=== PATIENT | female | born 2005 | race Caucasian/White ===

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

== ENCOUNTER 2024-02-18 13:38 | Outpatient (REF) | payer MEDICAID, SELFPAY | END 2024-02-18 13:39 | disposition home or self-care (01) | LOC: NCHCN 13:38 | PROVIDERS: PCP Physician Assistant; Visit Provider Physician Assistant | DX: N39.0 Urinary tract infection, site not specified (principal); B96.29 Other Escherichia coli [E. coli] as the cause of diseases classified elsewhere | CPT/HCPCS: 87077; 87086; 87186 ==

== ENCOUNTER 2024-03-29 14:29 | Outpatient (REF) | payer MEDICAID, SELFPAY ==
[2024-03-30 12:15] LABS: Chlamydia Result Negative (Negative); GC Result Negative (Negative)
== END 2024-03-29 14:30 | disposition home or self-care (01) ==
LOC: LBN 14:29
PROVIDERS: Visit Provider Obstetrics & Gynecology
DX: Z11.3 Encounter for screening for infections with a predominantly sexual mode of transmission (principal); Z32.00 Encounter for pregnancy test, result unknown; N39.0 Urinary tract infection, site not specified; Z87.42 Personal history of other diseases of the female genital tract; Z86.59 Personal history of other mental and behavioral disorders
CPT/HCPCS: 87491; 87591

== ENCOUNTER 2024-05-05 16:29 | Outpatient (CLI) | payer MEDICAID, SELFPAY ==
--- NOTE | 2024-05-05 16:15 | RT.EKG_ITS ---
APPROVED REPORT Exam: Resting ECG Reason for Exam: Syncope and collapse Patient Location: O HR:67 bpm ECG Measurements Heart Rate 67 AXIS UT 178 P 65 QRSd 99 QRS 80 QT 384 T 69 QTc 406 Conclusion Sinus rhythm...normal P axis, V-rate 50- 99 Normal Electrocardiogram
== END 2024-05-05 16:30 | disposition home or self-care (01) ==
LOC: DI.KIM 16:30
PROVIDERS: Visit Provider Nurse Practitioner Family
DX: R55 Syncope and collapse (principal)
CPT/HCPCS: 93010

== ENCOUNTER 2024-05-17 02:26 | Outpatient (CLI) | payer MEDICAID, SELFPAY ==
[2024-05-17 16:55] LABS: HGB 13.5 g/dL (11.2-15.7); MCH 28.5 pg (27.0-33.0); MCHC 32.9 % (32.0-36.0); MCV 87 fL (80-95); MPV 9.4 fL (8.0-11.0); Platelet Count 209 10^3/uL (130-400); RBC 4.73 10^6/uL (3.93-5.22); RDW-SD 38.9 fL; WBC 7.28 10^3/uL (4.4-10.8)
[2024-05-17 17:19] LABS: ALT 19 U/L (14-59); AST 16 U/L (15-37); Albumin 4.1 g/dL (3.4-5.0); Alkaline Phosphatase 54 U/L (46-116); BUN 14 mg/dL (7-18); Bilirubin, Total 0.49 mg/dL (0.2-1.0); CREATININE 0.9 mg/dL (0.55-1.02); Calcium 9.2 mg/dL (8.5-10.1); Chloride 102 mmol/L (98-107); Estimated GFR 94.44 (mL/min/1.73m2); Glucose 105 mg/dL (74-106); Potassium 3.7 mmol/L (3.5-5.1); Sodium 137 mmol/L (136-145); TSH (W/Ref FT4) 1.14 uIU/mL (0.52-4.13); Total Protein 8.1 g/dL (6.4-8.2)
== END 2024-05-17 02:27 | disposition home or self-care (01) ==
LOC: LBO 02:26
PROVIDERS: PCP Nurse Practitioner Family; Visit Provider Nurse Practitioner Family
DX: R55 Syncope and collapse (principal); R35.0 Frequency of micturition
CPT/HCPCS: 36415; 80053; 85027; 83735; 84443

== ENCOUNTER 2024-06-22 15:06 | Outpatient (CLI) | payer MEDICAID, SELFPAY | END 2024-06-22 15:07 | disposition home or self-care (01) | LOC: CARDOPNVT 15:06 | PROVIDERS: PCP Nurse Practitioner Family; Visit Provider Nurse Practitioner Family | DX: R55 Syncope and collapse (principal) | CPT/HCPCS: 93246 ==